=== PATIENT | female | born 1980 | race Caucasian/White ===

== ENCOUNTER 2023-12-15 12:57 | Emergency (ER) | payer MEDICAID ==
[~2023-12-15] VITALS: Ht 172.7 cm; Wt 84.1 kg
[2023-12-15] MEDS ORDERED: cyclobenzaprine 10mg tablet PO ONE (14:20)
[2023-12-15] MEDS: cyclobenzaprine 10mg tablet PO ONE (14:40)
[2023-12-15] MEDS ORDERED: CYCL-1 PO (14:52)
[2023-12-15 14:57] VITALS: BP 127/75; PULSE 77; RESP 16; TEMP 97.5; O2SAT 96
== END 2023-12-15 14:58 | disposition home or self-care (01) ==
LOC: ER 12:58
DX: S52.91XA Unspecified fracture of right forearm, initial encounter for closed fracture (principal); S52.201A Unspecified fracture of shaft of right ulna, initial encounter for closed fracture; Z79.899 Other long term (current) drug therapy; X36.1XXA Avalanche, landslide, or mudslide, initial encounter; Y93.89 Activity, other specified; Y92.89 Other specified places as the place of occurrence of the external cause; Y99.8 Other external cause status
CPT/HCPCS: 73100; 99283

== ENCOUNTER 2024-02-10 11:09 | Emergency (ER) | payer MEDICAID ==
[~2024-02-10] VITALS: Ht 172.7 cm; Wt 90.0 kg
[~2024-02-10 11:09] MED LIST: CYCL-1 PO
[2024-02-10] MEDS: methylPREDNISolone sod succ 125mg/2ml vial IV ONE (13:21)
[2024-02-10] MEDS: meperidine/PF 50mg/ml syringe IV ONE (13:23)
[2024-02-10] MEDS: docusate sod 100mg capsule PO ONE (13:55)
[2024-02-10 14:07] VITALS: TEMP 98
[2024-02-10] MEDS ORDERED: TRAM50TA2 PO (14:14)
[2024-02-10] MEDS: triamcinolone acetonide 40mg/ml inj IM ONE (14:23)
[2024-02-10] MEDS: traMADol 50MG tablet PO ONE (14:23)
[2024-02-10] MEDS ORDERED: CYCL-1 PO (14:35)
[2024-02-10 14:39] VITALS: BP 118/77; PULSE 62; RESP 14; O2SAT 100
== END 2024-02-10 14:44 | disposition home or self-care (01) ==
LOC: ER 11:10
DX: M54.50 Low back pain, unspecified (principal); M54.16 Radiculopathy, lumbar region; M62.830 Muscle spasm of back; Z79.899 Other long term (current) drug therapy
CPT/HCPCS: 72131; 96372; 96374; 96375; 99285; J2175; J2930; J3301

== ENCOUNTER 2024-03-04 12:59 | Emergency (ER) | payer MEDICAID ==
[~2024-03-04] VITALS: Ht 172.7 cm; Wt 81.8 kg
[~2024-03-04 12:59] MED LIST changes: +TRAM50TA2 PO
[2024-03-04 13:16] VITALS: BP 145/98; PULSE 102; RESP 18; TEMP 98.4; O2SAT 98
== END 2024-03-04 15:57 | disposition home or self-care (01) ==
LOC: ER 13:00
DX: M25.531 Pain in right wrist (principal)
CPT/HCPCS: 99281

== ENCOUNTER 2024-03-14 16:58 | Outpatient (CLI) | payer MEDICAID ==
[~2024-03-14 16:58] MED LIST changes: -TRAM50TA2 PO
== END 2024-03-14 23:59 | disposition home or self-care (01) ==
LOC: RAD 16:58
PROVIDERS: ATTEND Orthopaedic Surgery
DX: S52.531D Colles' fracture of right radius, subsequent encounter for closed fracture with routine healing (principal); X58.XXXD Exposure to other specified factors, subsequent encounter
CPT/HCPCS: 73200; 76377

== ENCOUNTER 2024-12-23 07:45 | Day surgery (SDC) | payer MEDICAID ==
[2024-12-17 11:31] LABS: BASOPHILS % (AUTO) 0.6 % (0-1); EOSINOPHILS # (AUTO) 0.3 X10'3 (0-0.9); EOSINOPHILS % (AUTO) 3.9 % (0-6); LYMPHOCYTES # (AUTO) 1.4 X10'3 (1.1-4.8); LYMPHOCYTES % (AUTO) 16.8 % (21-51); MEAN CORPUSCULAR HGB CONC 34.6 g/dL (33.0-36.5); MEAN CORPUSCULAR VOLUME 95.4 FL (78-98); MONOCYTES # (AUTO) 0.7 X10'3 (0-0.9); MONOCYTES % (AUTO) 8.8 % (2-12); NEUTROPHILS # (AUTO) 5.7 X10'3 (1.8-7.7); NEUTROPHILS % (AUTO) 69.9 % (42-75); PRE OP HEMATOCRIT 44.9 % (35.0-45.0); PRE OP HEMOGLOBIN 15.5 g/dL (12.0-16.0); PRE OP PLATELET COUNT 259 X10'3 (140-440); PRE OP WHITE BLOOD COUNT 8.2 10'3 (4.8-10.8); RED CELL DISTRIBUTION WIDTH 13.3 % (11.5-14.5)
[2024-12-17 12:20] LABS: HCG SERUM QL NEGATIVE
[2024-12-17 12:59] LABS: ALBUMIN 4.4 G/DL (3.4-5.0); ALKALINE PHOSPHATASE 66 IU/L (46-116); BLOOD UREA NITROGEN 13 MG/DL (7-18); BUN/CREATININE RATIO 15.5 (10.0-20.0); CALCIUM 9.6 MG/DL (8.5-10.1); CHLORIDE 102 MMOL/L (99-107); CREATININE 0.84 MG/DL (0.40-0.90); PRE OP ALT 25 U/L (30-65); PRE OP ANION GAP 13 (8-16); PRE OP AST 26 U/L (10-37); PRE OP BILIRUB, TOTAL 0.6 MG/DL (0.0-1.0); PRE OP GLUCOSE 77 MG/DL (70-104); PRE OP SODIUM 138 MMOL/L (135-145); TOTAL CARBON DIOXIDE 22.6 MMOL/L (24-32); eGFR 74 ML/MIN
[2024-12-23] VITALS (10 sets, daily range): BP systolic 120–131; BP diastolic 72–87; PULSE 62–101; RESP 11–19; TEMP 98.8; O2SAT 96–99
[~2024-12-23] VITALS: Ht 172.7 cm; Wt 89.6 kg
[~2024-12-23 07:45] MED LIST changes: +BIOTIN PO; +BUPIVAcaine 2.5mg/ml inj 50ml vial (contains preservative) ONE; +COLLAGEN PO; -CYCL-1 PO; +DHEA PO; +GABA PO; +GREEN TEA PO; +IODINE PO; +L-THEANINE PO; +MILK THISTLE PO; +MULT-1085 PO; +OMEGA-3 PO; +PROBIOTIC PO; +RED RICE YEAST PO; +TUMERIC PO; +UBID50TA3 PO; +[UNRECOGNIZED DRUG - MIXTURE] PO; +[UNRECOGNIZED DRUG - REMARK] PO
[2024-12-23] MEDS: famotidine 20mg tablet PO ONE (08:49)
[2024-12-23] MEDS: ringers solution, lacted 1,000 ML IV SCH (08:49)
[2024-12-23] MEDS: ceFAZolin 2gm in dextrose, iso 50 ML IV ONE (08:49)
[2024-12-23] MEDS ORDERED: fentaNYL/PF 50MCG/1 ML 2ML syringe ONE (10:01)
[2024-12-23] MEDS ORDERED: midazolam 1 mg/ML 2ml injection ONE (10:01)
[2024-12-23] MEDS ORDERED: propofol inj 20 ML IV ONE (10:02)
[2024-12-23] MEDS ORDERED: LIDOcaine 2% (20mg/ml) 5ml vial ONE (10:02)
[2024-12-23] MEDS ORDERED: ketorolac trometh 30MG/ML vial 30 MG/ML VIAL ONE (10:08)
[2024-12-23] MEDS ORDERED: desflurane 240ml liquid inh. IH ONE (10:14)
[2024-12-23] MEDS ORDERED: acetaminophen 1,000mg/100ml IV 100 ML IV ONE (10:25)
[2024-12-23] MEDS ORDERED: meperidine/PF 25mg/ml syringe ONE (11:34)
[2024-12-23] MEDS ORDERED: ondansetron/PF 4mg/2ml inj ONE (11:35)
[2024-12-23] MEDS ORDERED: labetalol 20mg/4ml (5mg/ml) syringe IV PRN (12:00)
[2024-12-23] MEDS ORDERED: proMETHazine 25mg rectal suppository RC PRN (12:00)
[2024-12-23] MEDS ORDERED: ringers solution, lacted 1,000 ML IV SCH (12:00)
[2024-12-23] MEDS ORDERED: meperidine/PF 25mg/ml syringe IV PRN (12:00)
[2024-12-23] MEDS ORDERED: proCHLORperazine 10 MG/2 ml inj IV PRN (12:00)
[2024-12-23] MEDS ORDERED: HYDROmorphone/PF 0.2 MG/ML SYRINGE IV PRN (12:00)
[2024-12-23] MEDS: ondansetron/PF 4mg/2ml inj IV PRN (12:08)
[2024-12-23] MEDS: HYDROmorphone/PF 0.2 MG/ML SYRINGE IV PRN (12:08)
== END 2024-12-23 13:03 | disposition home or self-care (01) ==
LOC: PAS 07:45
PROVIDERS: ATTEND Orthopaedic Surgery Hand Surgery
DX: M19.131 Post-traumatic osteoarthritis, right wrist (principal); K21.9 Gastro-esophageal reflux disease without esophagitis; M65.931 Unspecified synovitis and tenosynovitis, right forearm; Z79.899 Other long term (current) drug therapy; Z98.890 Other specified postprocedural states; F32.A Depression, unspecified; Z85.41 Personal history of malignant neoplasm of cervix uteri; E78.5 Hyperlipidemia, unspecified; Z87.891 Personal history of nicotine dependence; Z72.89 Other problems related to lifestyle
CPT/HCPCS: 29846; 36415; 80053; 82948; 84703; 85025; J0131; J0690; J1100; J1171; J1885; J2003; J2175; J2250; J2405; J2704; J3010; J3490; J7030; J7120; Z7506; Z7508; Z7512; A4215; A4618; A6449; A7000